=== PATIENT | male | born 1945 | race Caucasian/White ===

== ENCOUNTER → 2020-01-13 14:04 | Outpatient (CLI) | payer MEDICARE, SELFPAY | PROVIDERS: Visit Provider Urology | DX: N41.9 Inflammatory disease of prostate, unspecified (principal) | CPT/HCPCS: 87086; 87088; 87186 ==

== ENCOUNTER → 2020-04-01 14:09 | Outpatient (CLI) | payer MEDICARE, SELFPAY ==
[2020-04-03 11:12] LABS: PSA, Free 1.34 ng/mL; Prostate Specific Ag 9.9 ng/mL (0.0-4.0)
== END ==
PROVIDERS: Visit Provider Urology
DX: R97.20 Elevated prostate specific antigen [PSA] (principal)
CPT/HCPCS: 36415; 84153; 84154

== ENCOUNTER → 2020-05-24 16:46 | Outpatient (CLI) | payer MEDICARE, SELFPAY | PROVIDERS: Visit Provider Urology | DX: N39.0 Urinary tract infection, site not specified (principal); N41.1 Chronic prostatitis | CPT/HCPCS: 87086; 87088; 87186 ==